=== PATIENT | female | born 1985 | race Caucasian/White ===

== ENCOUNTER → 2017-08-07 12:04 | Outpatient (CLI) | payer BC, SELFPAY ==
[2017-08-07 12:47] LABS: Basophils # 0.1 K/mm3 (0-0.2); Basophils % 0.5 % (0.1-2.0); Eosinophils # 0.1 K/mm3 (0.0-0.4); Eosinophils % 1.3 % (0.1-12.0); Hematocrit 37.9 % (37.0-47.0); Hemoglobin 12.8 g/dL (12.2-16.2); Lymphocytes # 2.2 K/mm3 (0.7-4.5); Lymphocytes % 21.9 K/mm3 (10-50); Mean Corpuscular HGB Conc 33.9 g/dL (31.8-35.4); Mean Corpuscular Hemoglobin 29.6 pg (27.0-31.2); Mean Corpuscular Volume 87.5 fl (81-99); Mean Platelet Volume 7.4 fl (7.4-10.4); Monocytes # 0.4 K/mm3 (0.1-1.0); Monocytes % 4.4 % (1.7-9.3); Neutrophils # 7.1 K/mm3 (1.8-7.8); Neutrophils % 71.9 % (37.0-80.0); Platelet Count 343 K/mm3 (142-424); Red Blood Count 4.33 M/mm3 (4.20-5.40); Red Cell Distribution Width 12.9 % (11.5-17.5); White Blood Count 9.9 K/mm3 (4.8-10.8)
[2017-08-07 14:12] LABS: Alanine Aminotransferase 31 U/L (12-78); Albumin Level 3.9 gm/dL (3.4-5.0); Albumin/Globulin Ratio 1.1 (1.1-1.8); Alkaline Phosphatase 95 U/L (46-116); Anion Gap 14.3 mEq/L (5-15); Aspartate Amino Transferase 23 U/L (15-37); Bilirubin,Total 0.3 mg/dL (0.2-1.0); Blood Urea Nitrogen 14 mg/dL (7-18); Calcium 8.9 mg/dL (8.5-10.1); Carbon Dioxide 28 mmol/L (21.0-32.0); Chloride 105 mmol/L (98-107); Creatinine,Serum 0.89 mg/dL (0.55-1.02); Estimated Glomerular Filt Rate 74 ml/min (>60); GFR (African American) 90 ML/MIN (>60); Globulin 3.4 gm/dl (1.3-3.2); Glucose 94 mg/dL (74-106); Potassium 4.3 mmoL/L (3.5-5.1); Sodium 143 mmol/L (136-145); Thyroid Stimulating Hormone 0.95 uIU/ml (0.358-3.740); Total Protein,Serum 7.3 gm/dL (6.4-8.2)
[2017-08-10 17:10] LABS: Vitamin B12 398 pg/mL (232-1245)
== END ==
PROVIDERS: PCP Nurse Practitioner Family; Visit Provider Nurse Practitioner Family
DX: R00.2 Palpitations (principal); E53.8 Deficiency of other specified B group vitamins
CPT/HCPCS: 36415; 80053; 82607; 84443; 85025; 93225; 93226

== ENCOUNTER → 2017-08-10 12:41 | Outpatient (CLI) | payer BC, SELFPAY ==
--- NOTE | 2017-08-10 12:59 | CA_ITS ---
PROCEDURE: 2-D M-mode and color Doppler study INDICATIONS FOR THE TEST: Chest pain COPD Heart Murmur Tobacco Smokingex Palpitations+ Fatigue Syncope Edema Hypertension Diabetes Mellitus Rheumatic Fever SOB DIAL+Obesity+Hyperlipidemia Family History HD+ Additional History chest tightness/pressure PATIENT INFORMATION HEIGHT: 64 WEIGHT: 235 GENDER: Female B/P: 142/95 2-D/M-MODE INTERPRETATION: 2-D MEASUREMENTS OBSERVED VALUES IN CMS Right Ventricular Dimension (RVDd) 2.0 Interventricular Septum (Thickness)(IVsd) 1.0 Left Ventricular Internal Dimensions(LVIDd) 5.0 Left Ventricular Posterior Wall (Thickness)(LVPWd) 1.0 Aortic Root 2.8 Aortic Cusp Separation 2.3 Left Atrial Dimensions (LAD) 3.6 2D 1. Left atrium is normal size, left ventricle is normal size, there is no concentric left ventricular hypertrophy, visually estimated ejection fraction 55% with no obvious regional wall motion abnormality. 2. The right atrium and right ventricle are normal size and contractility. 3. The aortic valve is minimally thickened and fibrosed. 4. The mitral valve leaflets are minimally thickened. 5. The tricuspid valve restructure normal 6. The pulmonic valve is poorly visualized. 7. No significant pericardial effusion noted. DOPPLER INTERROGATION: Doppler interrogation of the aortic, mitral and tricuspid valvular presence of mild mitral and tricuspid regurgitation, tricuspid and jet velocity is insufficient for calculation of the right ventricular systolic pressure, diastolic parameters are within normal range. CONCLUSION: 1. Normal left ventricular size, preserved left ventricular systolic function, visually estimated ejection fraction 55% with no signal wall motion abnormality, diastolic parameters are within normal range. 2. Mild mitral and tricuspid regurgitation. 3. No significant pericardial effusion noted.
== END ==
PROVIDERS: Family Provider Family Medicine; PCP Nurse Practitioner Family; Visit Provider Internal Medicine Adolescent Medicine
DX: R00.2 Palpitations (principal)
CPT/HCPCS: 93306

== ENCOUNTER → 2018-02-14 03:48 | Outpatient (CLI) | payer OTHER, SELFPAY ==
[2018-02-14 04:04] VITALS: BMI 38.6
== END ==
PROVIDERS: Visit Provider Emergency Medicine
DX: R05 Cough (principal); J20.9 Acute bronchitis, unspecified
CPT/HCPCS: 96372

== ENCOUNTER → 2019-01-30 01:48 | Outpatient (CLI) | payer OTHER, SELFPAY ==
[2019-01-30 02:06] VITALS: BMI 41.4
== END ==
PROVIDERS: PCP Internal Medicine Adolescent Medicine; Visit Provider Emergency Medicine
DX: G43.909 Migraine, unspecified, not intractable, without status migrainosus (principal)
CPT/HCPCS: G0463; J2405

== ENCOUNTER 2019-06-07 01:58 | Outpatient (CLI) | payer OTHER, SELFPAY ==
[2019-06-07 03:38] VITALS: BMI 30.9
[2019-06-07 03:43] VITALS: BP 134/82; PULSE 88; RESP 15; TEMP 36.8; O2SAT 100
== END 2019-06-07 03:45 | disposition home or self-care (01) ==
LOC: ER 02:00
PROVIDERS: PCP Internal Medicine Adolescent Medicine; Visit Provider Emergency Medicine
DX: J01.90 Acute sinusitis, unspecified (principal)
CPT/HCPCS: 96372; G0463

== ENCOUNTER 2019-10-27 11:35 | Outpatient (CLI) | payer OTHER, SELFPAY ==
[2019-10-27 12:10] VITALS: BP 157/97; PULSE 91; RESP 18; TEMP 36.2; O2SAT 98
== END 2019-10-27 12:10 | disposition home or self-care (01) ==
LOC: INF 11:36
PROVIDERS: PCP Internal Medicine Adolescent Medicine; Visit Provider Internal Medicine Adolescent Medicine
DX: M54.5 Low back pain (principal)
CPT/HCPCS: 96372

== ENCOUNTER → 2020-03-03 13:09 | Outpatient (CLI) | payer OTHER, SELFPAY ==
[2020-03-03 13:45] VITALS: BMI 29.0
== END ==
PROVIDERS: PCP Internal Medicine Adolescent Medicine; Visit Provider Nurse Practitioner Family
DX: L23.7 Allergic contact dermatitis due to plants, except food (principal)

== ENCOUNTER → 2020-03-15 08:35 | Outpatient (CLI) | payer OTHER, SELFPAY | PROVIDERS: PCP Internal Medicine Adolescent Medicine; Visit Provider Internal Medicine Adolescent Medicine | DX: Z03.818 Encounter for observation for suspected exposure to other biological agents ruled out (principal) | CPT/HCPCS: U0003 ==

== ENCOUNTER → 2020-04-29 15:53 | Outpatient (CLI) | payer OTHER, SELFPAY ==
[2020-04-29 17:35] LABS: Alanine Aminotransferase 190 U/L (12-78); Albumin Level 4.3 g/dl (3.5-5.0); Alkaline Phosphatase 77 U/L (38-126); Aspartate Amino Transferase 100 U/L (14-36); Bilirubin,Indirect 0.4 mg/dL (0.0-0.9); Bilirubin,Total 0.4 mg/dl (0.2-1.3); Bilirubin,Unconjugated 0.4 mg/dL (0.0-1.1); Total Protein,Serum 7.3 g/dl (6.3-8.2)
[2020-05-01 12:09] LABS: Hep A Ab, IgM Negative (Negative); Hepatitis B Core Antibody IgM Negative (Negative); Hepatitis B Surface Antigen Negative (Negative)
[2020-05-01 16:46] LABS: Hepatitis C Antibody <0.1 s/co ratio (0.0-0.9)
== END ==
PROVIDERS: Visit Provider Nurse Practitioner Family
DX: R94.5 Abnormal results of liver function studies (principal)
CPT/HCPCS: 36415; 80074; 80076

== ENCOUNTER → 2020-05-04 08:51 | Outpatient (CLI) | payer OTHER, SELFPAY ==
--- NOTE | 2020-05-04 08:54 | US_ITS ---
PROCEDURE: US LIVER CLINICAL INDICATION: ELEVATED LIVER ENZYMES COMPARISON: No exams were available for comparison FINDINGS: PANCREAS: Unremarkable. No obvious mass or abnormal fluid collection. No ductal dilatation LIVER: Diffuse increased echogenicity of the liver with poor through transmission of sound consistent with hepatic steatosis. No focal liver lesion demonstrated. There is appropriate direction of blood flow within non dilated portal vein. RIGHT KIDNEY: Unremarkable. Normal size and echogenicity. No hydronephrosis GALLBLADDER: No gallstones, gallbladder wall thickening, pericholecystic fluid, or biliary dilatation. IMPRESSION: Fatty liver otherwise negative unremarkable right upper quadrant ultrasound Dictated by: Floyd Cherry MD 05/04/2020 15:01 Floyd Cherry MD in [place] 05/04/2020 15:01
== END ==
PROVIDERS: PCP Internal Medicine Adolescent Medicine; Visit Provider Nurse Practitioner Family
DX: R74.8 Abnormal levels of other serum enzymes (principal)
CPT/HCPCS: 76705

== ENCOUNTER → 2021-02-21 09:32 | Outpatient (CLI) | payer OTHER, SELFPAY ==
[2021-02-21 10:27] LABS: Basophils % 0.3 % (0.1-2.0); Eosinophils # 0.2 K/mm3 (0.0-0.4); Eosinophils % 1.8 % (0.1-12.0); Hematocrit 37.7 % (37.0-47.0); Hemoglobin 12.6 g/dL (12.2-16.2); Lymphocytes % 24.7 % (10-50); Mean Corpuscular HGB Conc 33.5 g/dL (31.8-35.4); Mean Corpuscular Hemoglobin 29.2 pg (27.0-31.2); Mean Platelet Volume 7.3 fl (7.4-10.4); Monocytes # 0.3 K/mm3 (0.1-1.0); Monocytes % 3.2 % (1.7-9.3); Neutrophils # 5.8 K/mm3 (1.8-7.8); Neutrophils % 70.1 % (37.0-80.0); Platelet Count 309 K/mm3 (142-424); Red Blood Count 4.33 M/mm3 (4.20-5.40); Red Cell Distribution Width 12.6 % (11.5-17.5); White Blood Count 8.2 K/mm3 (4.8-10.8)
[2021-02-21 11:20] LABS: Alanine Aminotransferase 105 U/L (12-78); Albumin Level 4.2 g/dl (3.5-5.0); Albumin/Globulin Ratio 1.6 (1.1-1.8); Alkaline Phosphatase 75 U/L (38-126); Anion Gap 14.3 mEq/L (5-15); Aspartate Amino Transferase 62 U/L (14-36); Bilirubin,Total 0.5 mg/dl (0.2-1.3); Blood Urea Nitrogen 14 mg/dl (7-17); Calcium 8.9 mg/dl (8.4-10.2); Carbon Dioxide 22 mmol/L (22.0-30.0); Chloride 107 mmol/L (98-107); Chol/HDL Ratio 2.9 (1-3.5); Cholesterol 167 mg/dl (140-200); Estimated Glomerular Filt Rate 82 ml/min (>60); GFR (African American) 99 ML/MIN (>60); Globulin 2.7 g/dL (1.3-3.2); Glucose 100 mg/dl (74-100); HDL Cholesterol 58 mg/dl (40-60); Potassium 4.3 mmoL/L (3.5-5.1); Sodium 139 mmol/L (136-145); Total Protein,Serum 6.9 g/dl (6.3-8.2); Triglycerides 124 mg/dl (30-150); VLDL Cholesterol 25 mg/dL (0-40)
[2021-02-21 11:31] LABS: Direct LDL Cholesterol 89.98 mg/dL (100-129)
[2021-02-21 11:36] LABS: 25-OH Vitamin D, Total 51.2 ng/mL (30-100)
[2021-02-21 12:09] LABS: Vitamin B12 437 pg/mL (239-931)
== END ==
PROVIDERS: Visit Provider Nurse Practitioner Family
DX: Z00.00 Encounter for general adult medical examination without abnormal findings (principal); R53.83 Other fatigue
CPT/HCPCS: 36415; 80053; 80061; 82306; 82607; 84443; 85025

== ENCOUNTER 2021-04-03 12:57 | Emergency (ER) | payer OTHER, SELFPAY ==
[2021-04-03 12:57] VITALS: BP 148/86; PULSE 89; RESP 16; TEMP 37.2; O2SAT 98; BMI 40.8
--- NOTE | 2021-04-03 13:32 | CT_ITS ---
PROCEDURE INFORMATION: Exam: CT Abdomen And Pelvis With Contrast Exam date and time: 04/03/2021 1:32 PM Age: 35 years old Clinical indication: Abdominal pain; Localized; Right lower quadrant (rlq) TECHNIQUE: Imaging protocol: Computed tomography of the abdomen and pelvis with contrast. Radiation optimization: All CT scans at this facility use at least one of these dose optimization techniques: automated exposure control; mA and/or kV adjustment per patient size (includes targeted exams where dose is matched to clinical indication); or iterative reconstruction. Contrast material: ISOVUE; Contrast volume: 75 ml; Contrast route: IV; COMPARISON: [facility] XR acute abdomen series 06/22/2018 8:41 AM FINDINGS: Lungs: Ovoid 8 x 3 mm peripheral right pulmonary nodular density series 3, image 23, in the medial right lower lobe, most likely of infectious/inflammatory etiology, probably chronic granuloma and scarring, in this young patient, but no prior studies are available to compare. Note that [employer] society guidelines do not apply to patients less than 35 years of age. Mild interstitial scarring or subsegmental atelectasis greatest in the posterior right lower lobe. No consolidation. Liver: Mild focal periligamentous fatty change in the anterior left lobe of liver series 3, image 29. No suspicious mass. No hepatomegaly. Gallbladder and bile ducts: Contracted gallbladder is not well evaluated. No calcified stones. No biliary dilatation. Pancreas: Slight fatty infiltrative changes in the pancreas. No mass or ductal dilatation. Spleen: Borderline splenomegaly 12.8 cm series 3, image 34. Adrenal glands: The adrenal glands are normal. Kidneys and ureters: There is slight right hydronephrosis and proximal hydroureter compared with left, but no calcified obstructing stones. No renal mass or CT findings of pyelonephritis. Stomach and bowel: Most of the transverse, descending and sigmoid colon are empty and contracted which likely accounts for slightly thickened appearance. No pericolic edema fluid.There is no evidence of intestinal perforation or obstruction. The stomach is normal. Appendix: A normal appendix is identified. Intraperitoneal space: There is no free intraperitoneal air. There is no significant free intraperitoneal fluid. Vasculature: There is no aortic aneurysm. No portal venous gas. Lymph nodes: No significantly enlarged lymph nodes by short axis criteria. Urinary bladder: The bladder is normal. Reproductive: Uterus and adnexa are unremarkable for age. Bones/joints: There are spinal degenerative changes, with multilevel disc narrrowing and spondylosis. Degenerative changes appear greatest in the lower thoracic spine. Very mild hip degenerative changes. Soft tissues: There is a tiny fatty umbilical hernia; no herniated bowel loops. There are no soft tissue masses or fluid collections. IMPRESSION: 1. No findings of appendicitis. 2. There is slight dilatation of the right renal collecting system and proximal right ureter compared with left, but no obstructing calcified stones are seen. Differential would include recent passage of a stone, occult low-density distal ureteral stone such as urate stone, or UTI. 3. Most of the transverse, descending and sigmoid colon are empty and contracted, which likely accounts for thickened appearance. Less likely would be colitis; there is no pericolic fluid. 4. Additional nonemergency and chronic findings as above.
[2021-04-03 13:35] LABS: Microscopic, Urine URINE MICROSCOPIC (MICROSCOPIC)
[2021-04-03 13:40] LABS: Appearance,Urine TURBID (Clear); Bilirubin,Urine Negative (Negative); Blood, Urine 3+ (Negative); Color,Urine RED (Yellow); Glucose,Urine (UA) Negative (Negative); Ketones,Urine TRACE (Negative); Leukocyte Esterase,Urine TRACE (Negative); Nitrate,Urine POSITIVE (Negative); Protein,Urine 2+ (Negative)
[2021-04-03 13:44] LABS: Urine Pregnancy, HCG Qual. Negative (Negative)
[2021-04-03 13:52] LABS: Amorphous Sediment,Urine 1+ /lpf; Bacteria,Urine 2+ /lpf; RBC,Urine TNTC #/hpf (0-3)
[2021-04-03 14:17] LABS: Basophils # 0.1 K/mm3 (0-0.2); Chloride 107 mmol/L (98-107); Eosinophils # 0.1 K/mm3 (0.0-0.4); Eosinophils % 1.6 % (0.1-12.0); Hematocrit 37.1 % (37.0-47.0); Hemoglobin 12.5 g/dL (12.2-16.2); Lymphocytes # 1.7 K/mm3 (0.7-4.5); Lymphocytes % 28.9 % (10-50); Mean Corpuscular HGB Conc 33.8 g/dL (31.8-35.4); Mean Corpuscular Hemoglobin 30.5 pg (27.0-31.2); Mean Corpuscular Volume 90.4 fl (81-99); Mean Platelet Volume 8.1 fl (7.4-10.4); Monocytes # 0.4 K/mm3 (0.1-1.0); Monocytes % 6.4 % (1.7-9.3); Neutrophils # 3.7 K/mm3 (1.8-7.8); Neutrophils % 62.1 % (37.0-80.0); Platelet Count 363 K/mm3 (142-424); Potassium 4.1 mmoL/L (3.5-5.1); Red Blood Count 4.11 M/mm3 (4.20-5.40); Red Cell Distribution Width 13.3 % (11.5-17.5); Sodium 140 mmol/L (136-145); White Blood Count 5.9 K/mm3 (4.8-10.8)
[2021-04-03 14:19] LABS: Alanine Aminotransferase 68 U/L (12-78); Aspartate Amino Transferase 43 U/L (14-36); Blood Urea Nitrogen 11 mg/dl (7-17); Creatinine Clearance Estimated 169 mL/min (50-200); Estimated Glomerular Filt Rate 82 ml/min (>60); GFR (African American) 99 ML/MIN (>60)
[2021-04-03 14:20] LABS: Albumin Level 3.9 g/dl (3.5-5.0); Albumin/Globulin Ratio 1.3 (1.1-1.8); Alkaline Phosphatase 73 U/L (38-126); Anion Gap 11.1 mEq/L (5-15); Bilirubin,Total 0.2 mg/dl (0.2-1.3); Calcium 8.9 mg/dl (8.4-10.2); Carbon Dioxide 26 mmol/L (22.0-30.0); Globulin 3.1 g/dL (1.3-3.2); Glucose 105 mg/dl (74-100)
[2021-04-03 14:31] VITALS: BP 135/80; PULSE 68; RESP 18; O2SAT 98
--- NOTE | 2021-04-03 14:40 | HMH.EDGENADL ---
ED Disposition Clinical Impression: Nephrolithiasis, Pyelonephritis Disposition: Home, Self-Care Condition on Discharge: Fair Instructions: DI for Acute Abdominal Pain Additional Instructions: For any new or concerning symptoms, if pain worsens if you have fevers, chills, flank or abdominal pain worsens. Please take antibiotics for full course even if your symptoms have improved. Please also follow-up with your primary care doctor next week. Prescriptions: Ketorolac Tromethamine [Toradol 10mg tablet] 10 mg PO Q6HP PRN #30 tab MDD 40mg/day PRN Reason: Mild To Moderate Pain Transmission Status: Received by [facility] # Cefdinir [Omnicef 300mg Capsule] 300 mg PO BID #20 cap Transmission Status: Received by [facility] # Referrals: Felix Persaud MD [Primary Care Provider] - - Critical Care Critical Care Time: No Attestation: On 04/03/21, the high probability of a clinically significant, sudden or life threatening deterioration of the following system(s) required my full and direct attention, intervention and personal management. The time I documented below is in addition to time spent performing reported procedures but includes the following listed in this critical care notation. Medical Decision Making - Medical Records Medical records reviewed: Yes: I reviewed the patient's medical records. - Anthony Inquiry Pt receiving controlled substance: No Vital Signs: 04/03/21 12:57 04/03/21 14:31 04/03/21 15:01 Temperature 98.9 F Temperature Source Oral Pulse Rate 68 82 Pulse Rate [Radial] 89 Respiratory Rate 16 18 18 Blood Pressure 135/80 144/81 H Blood Pressure [Right Arm] 148/86 H Blood Pressure Mean 98 102 Blood Pressure Mean [Right Arm] 106 Blood Pressure Position Blood Pressure Position [Right Arm] Sitting 02 Sat by Pulse Oximetry 98 98 99 Oxygen Delivery Method Room Air 04/03/21 15:31 04/03/21 16:00 04/03/21 16:01 Temperature 98 F Temperature Source Oral Pulse Rate 74 78 77 Pulse Rate [Radial] Respiratory Rate 18 16 Blood Pressure 132/79 143/74 H 143/83 H Blood Pressure [Right Arm] Blood Pressure Mean 96 103 Blood Pressure Mean [Right Arm] Blood Pressure Position Sitting Blood Pressure Position [Right Arm] 02 Sat by Pulse Oximetry 99 99 Oxygen Delivery Method Room Air - Lab Data Lab Results 04/03/21 13:20: Urine Color Red, Urine Appearance Turbid, Urine pH 7.0, Ur Specific [place] 1.020, Urine Protein 2+, Urine Glucose (UA) Negative, Urine Ketones Trace, Urine Blood 3+, Urine Nitrate Positive, Urine Bilirubin Negative, Urine Urobilinogen 1.0, Ur Leukocyte Esterase Trace, Urine RBC Tntc, Urine WBC 5-10, Ur Squamous Epith Cells 10-20, Amorphous Sediment 1+, Urine Bacteria 2+ 04/03/21 13:20: Urine HCG, Qual Negative 04/03/21 14:00: WBC 5.9, RBC 4.11 L, Hgb 12.5, Hct 37.1, MCV 90.4, MCH 30.5, MCHC 33.8, RDW 13.3, Plt Count 363, MPV 8.1, Neut % (Auto) 62.1, Lymph % (Auto) 28.9, [place] % (Auto) 6.4, Eos % (Auto) 1.6, Baso % (Auto) 1.0, Neut # (Auto) 3.7, Lymph # (Auto) 1.7, [place] # (Auto) 0.4, Eos # (Auto) 0.1, Baso # (Auto) 0.1 04/03/21 14:00: Sodium 140, Potassium 4.1, Chloride 107, Carbon Dioxide 26, Anion Gap 11.1, BUN 11, Creatinine 0.80, Estimated Creat Clear 169, Estimated GFR 82, Est GFR ( Amer) 99, Glucose 105 H, Calcium 8.9, Total Bilirubin 0.2, AST 43 H, ALT 68, Alkaline Phosphatase 73, Total Protein 7.0, Albumin 3.9, Globulin 3.1, Albumin/Globulin Ratio 1.3 Result diagrams: 04/03/21 14:00 04/03/21 14:00 Orders (Tests/Meds): ED MEDICATIONS Discontinued Medications Generic Name Dose Route Start Last Admin Trade Name Freq PRN Reason Stop Dose Admin Hydromorphone HCl 0.5 mg 04/03/21 17:58 04/03/21 14:50 Hydromorphone 2mg/Ml Syringe IV 04/03/21 17:59 Not Given ONCE ONE Iopamidol 75 ml 04/03/21 14:18 04/03/21 14:19 Iopamidol-370 (76%);100ml Bottle IV 04/03/21 14:19 75 ml
[2021-04-03 15:01] VITALS: BP 144/81; PULSE 82; RESP 18; O2SAT 99
[2021-04-03 15:31] VITALS: BP 132/79; PULSE 74; RESP 18; O2SAT 99
[2021-04-03 16:00] VITALS: BP 143/74; PULSE 78; RESP 16; TEMP 36.6; O2SAT 98
[2021-04-03 16:01] VITALS: BP 143/83; PULSE 77; O2SAT 99
== END 2021-04-03 18:01 | disposition home or self-care (01) ==
PROVIDERS: Emergency Provider Emergency Medicine; PCP Internal Medicine Adolescent Medicine
DX: N10 Acute pyelonephritis (principal); B96.20 Unspecified Escherichia coli [E. coli] as the cause of diseases classified elsewhere
CPT/HCPCS: 74177; 80053; 81001; 81025; 85025; 87086; 87088; 87186; 96365; 96375; 99283; Q9967

== ENCOUNTER 2022-03-08 10:03 | Emergency (ER) | payer OTHER, SELFPAY ==
[2022-03-08 10:45] VITALS: BP 158/86; PULSE 91; RESP 18; TEMP 36.4; O2SAT 100; BMI 42.9
[2022-03-08 11:04] LABS: UTC Strep Screen (Rapid) Positive (Negative)
--- NOTE | 2022-03-08 11:12 | HMH.EDUTC ---
[facility] [place] Disposition Clinical Impression: Strep throat Disposition: Home, Self-Care Condition on Discharge: Good Instructions: DI for Strep Throat, Strep Throat Additional Instructions: *Monitor Temp, Over the counter Motrin or Tylenol as directed/as needed Tylenol every 4 hours and Motrin every 6 hours (as long as your family doctor has told you that you can take it) for fever or pain. and straight to ER if unable to lower temp less than 101.0 after medication given *Warm salt water gargles may help to soothe the throat *Throat Lozenges *Warm fluids like tea with honey may help to soothe the throat *Sleep elevated *Humidifier/Vaporizer *If you did not take Penicillin shot or was unable to, start taking antibiotic immediately and make sure that you take it for the FULL length of time although you should start to feel better in 24-48 hours *change toothbrush and toothpaste 24-48 hours after starting to take antibiotics so you do not reinfect yourself Monitor Temp. Tylenol and/or Ibuprofen as needed. ER if fever is no less than 101 despite alternating Tylenol and Ibuprofen * Encourage fluids, water, Gatorade, powerade, pedialyte if infant/toddler/or child *Cold fluids, popsicles and ice cream may feel good on his throat Follow up IMMEDIATELY for new or worsening symptoms or no Noticeable improvement over the next 48-72 hours. 911 for difficulty breathing or swallowing Prescriptions: Cefdinir [Omnicef 300mg Capsule] 300 mg PO BID #20 cap Transmission Status: Pending to [email or web address] #[id number] Referrals: Felix Persaud MD [Primary Care Provider] - As needed Time of Disposition: 11:28 Medical Decision Making - Anthony Inquiry Pt receiving controlled substance: No Anthony was queried for this patient: No Vital Signs: 03/08/22 10:45 Temperature 97.5 F L Temperature Source Temporal Artery Scan Pulse Rate [Right Brachial] 91 H Respiratory Rate 18 Blood Pressure [Right Arm] 158/86 H Blood Pressure Mean [Right Arm] 110 Blood Pressure Source [Right Arm] Automatic Cuff Blood Pressure Position [Right Arm] Sitting 02 Sat by Pulse Oximetry 100 Oxygen Delivery Method Room Air - Lab Data Lab results reviewed: Yes: I reviewed the patient's lab results. Lab Results 03/08/22 11:03: Strep Scn Rapid Clinic Positive A [facility] [place] HPI - General Stated complaint: sore throat, fever Time Seen by Provider: 03/08/22 11:12 Mode of Arrival: Ambulatory Source of Information: Patient Limitations: No Limitations Description of Symptoms (Recalled from Triage Doc. by RN): PATIENT C/O SORE THROAT THAT STARTED THIS MORNING HEENT Symptoms (Recalled from RN notes): Yes Resp Symptoms (Recalled from RN notes): No Skin Symptoms (Recalled from RN notes): No MS Symptoms (Recalled from RN notes): No Functional Status (Recalled from RN notes): WNL - History of Present Illness Provider Complaint: Patient states that she woke up this morning complaining of pain in her throat States that she feels like she may have strep throat States that as the day went on her throat was hurting worse so she came in - Related Data Home Medications Medication Instructions Recorded Confirmed Buspirone HCl [Buspar 10mg 10 mg PO BID 06/22/18 06/22/18 tablet] Fluoxetine HCl [Prozac 20mg 20 mg PO DAILY 06/22/18 06/22/18 Capsule] Propranolol HCl [Inderal 20mg 20 mg PO BID 06/22/18 06/22/18 tablet] Previous Rx's Medication Instructions Recorded Dicyclomine HCl [Bentyl 10mg 10 mg PO Q8H #20 cap 06/22/18 capsule] Loperamide HCl [Imodium A-D] 2 mg PO Q6HP PRN #12 cap 06/22/18 Metoclopramide HCl [Reglan 5mg 5 mg PO ACHS 30 Days #30 tab 06/22/18 Tablet] Cefdinir [Omnicef 300mg Capsule] 300 mg PO BID #20 cap 04/03/21 Ketorolac Tromethamine [Toradol 10 mg PO Q6HP PRN #30 tab MDD 04/03/21 10mg tablet] 40mg/day Cefdinir [Omnicef 300mg Capsule] 300 mg PO BID #20 cap 03/08/22 Allergies Allergy/AdvReac Type Severity R
[2022-03-08 11:30] VITALS: BP 158/86; PULSE 91; RESP 18; TEMP 36.4; O2SAT 100
== END 2022-03-08 11:32 | disposition home or self-care (01) ==
PROVIDERS: Emergency Provider Nurse Practitioner; PCP Internal Medicine Adolescent Medicine
DX: J02.0 Streptococcal pharyngitis (principal)
CPT/HCPCS: 87880; 99212; G0463

== ENCOUNTER 2022-03-09 20:30 | Emergency (ER) | payer OTHER, SELFPAY ==
[2022-03-09 20:31] VITALS: BP 134/83; PULSE 137; RESP 16; TEMP 39.6; O2SAT 96; BMI 42.9
[2022-03-09 20:43] VITALS: BMI 42.9
--- NOTE | 2022-03-09 20:44 | XR_ITS ---
PROCEDURE INFORMATION: Exam: XR Chest Exam date and time: 03/09/2022 8:46 PM Age: 36 years old Clinical indication: Fever TECHNIQUE: Imaging protocol: Radiologic exam of the chest. Views: 2 views. COMPARISON: CT ABDOMEN PELVIS W CON 04/03/2021 2:09 PM FINDINGS: Lungs: Unremarkable. No consolidation. Pleural spaces: Unremarkable. No pleural effusion. No pneumothorax. Heart/Mediastinum: Unremarkable. No cardiomegaly. Bones/joints: Unremarkable. IMPRESSION: No acute findings.
[2022-03-09 20:50] LABS: Influenza A, PCR Not Detected (NotDetected); Influenza B, PCR Not Detected (NotDetected)
[2022-03-09 21:01] LABS: Basophils # 0.2 K/mm3 (0-0.2); Basophils % 2.8 % (0.1-2.0); Eosinophils # 0.2 K/mm3 (0.0-0.4); Eosinophils % 2.6 % (0.1-12.0); Hematocrit 39.2 % (37.0-47.0); Hemoglobin 12.9 g/dL (12.2-16.2); Lymphocytes # 1.4 K/mm3 (0.7-4.5); Lymphocytes % 22.1 % (10-50); Mean Corpuscular HGB Conc 32.8 g/dL (31.8-35.4); Mean Corpuscular Hemoglobin 29.7 pg (27.0-31.2); Mean Corpuscular Volume 90.6 fl (81-99); Mean Platelet Volume 7.7 fl (7.4-10.4); Monocytes # 0.7 K/mm3 (0.1-1.0); Monocytes % 10.2 % (1.7-9.3); Neutrophils % 62.3 % (37.0-80.0); Platelet Count 361 K/mm3 (142-424); Red Blood Count 4.33 M/mm3 (4.20-5.40); Red Cell Distribution Width 13.6 % (11.5-17.5); White Blood Count 6.4 K/mm3 (4.8-10.8)
[2022-03-09 21:17] LABS: Alanine Aminotransferase 122 U/L (12-78); Albumin Level 4.2 g/dl (3.5-5.0); Albumin/Globulin Ratio 1.3 (1.1-1.8); Alkaline Phosphatase 97 U/L (38-126); Anion Gap 9.7 mEq/L (5-15); Aspartate Amino Transferase 71 U/L (14-36); Bilirubin,Total 0.2 mg/dl (0.2-1.3); Blood Urea Nitrogen 6 mg/dl (7-17); Carbon Dioxide 24 mmol/L (22.0-30.0); Chloride 107 mmol/L (98-107); Creatinine Clearance Estimated 75 mL/min (50-200); Estimated Glomerular Filt Rate 71 ml/min (>60); GFR (African American) 86 ML/MIN (>60); Globulin 3.2 g/dL (1.3-3.2); Glucose 110 mg/dl (74-100); Potassium 3.7 mmoL/L (3.5-5.1); Sodium 137 mmol/L (136-145); Total Protein,Serum 7.4 g/dl (6.3-8.2)
[2022-03-09 21:22] LABS: Microscopic, Urine URINE MICROSCOPIC (MICROSCOPIC)
[2022-03-09 21:23] LABS: Appearance,Urine CLOUDY (Clear); Bilirubin,Urine Negative (Negative); Blood, Urine 3+ (Negative); Color,Urine ORANGE (Yellow); Glucose,Urine (UA) Negative (Negative); Ketones,Urine Negative (Negative); Leukocyte Esterase,Urine TRACE (Negative); Nitrate,Urine Negative (Negative); Protein,Urine Negative (Negative); Specific Gravity, Urine 1.015 (1.005-1.030); Urobilinogen,Urine 0.2 EU/dl (0.2)
[2022-03-09 21:25] LABS: Coronavirus 19, PCR Detected (NotDetected)
[2022-03-09 21:46] LABS: Bacteria,Urine Trace /lpf; RBC,Urine TNTC #/hpf (0-3)
--- NOTE | 2022-03-09 21:50 | HMH.EDURI ---
ED Disposition Clinical Impression: COVID-19 Disposition: Home, Self-Care Condition on Discharge: Good Instructions: DI for COVID-19 (Suspected or Confirmed ) Additional Instructions: fluids and call pcp for follow up Referrals: Felix Persaud MD [Primary Care Provider] - - Critical Care Critical Care Time: No Attestation: On 03/09/22, the high probability of a clinically significant, sudden or life threatening deterioration of the following system(s) required my full and direct attention, intervention and personal management. The time I documented below is in addition to time spent performing reported procedures but includes the following listed in this critical care notation. Medical Decision Making - Medical Records Medical records reviewed: Yes: I reviewed the patient's medical records. - Anthony Inquiry Pt receiving controlled substance: No Vital Signs: 03/09/22 20:31 Temperature 103.2 F H Temperature Source Oral Pulse Rate [Right] 137 H Respiratory Rate 16 Blood Pressure [Right Arm] 134/83 Blood Pressure Mean [Right Arm] 100 02 Sat by Pulse Oximetry 96 - Lab Data Lab results reviewed: Yes: I reviewed the patient's lab results. Lab Results 03/09/22 20:43: SARS-CoV-2 (PCR) Detected A, Influenza A Untype (PCR) Not detected, Influenza Type B (PCR) Not detected 03/09/22 20:54: WBC 6.4, RBC 4.33, Hgb 12.9, Hct 39.2, MCV 90.6, MCH 29.7, MCHC 32.8, RDW 13.6, Plt Count 361, MPV 7.7, Neut % (Auto) 62.3, Lymph % (Auto) 22.1, [place] % (Auto) 10.2 H, Eos % (Auto) 2.6, Baso % (Auto) 2.8 H, Neut # (Auto) 4.0, Lymph # (Auto) 1.4, [place] # (Auto) 0.7, Eos # (Auto) 0.2, Baso # (Auto) 0.2 03/09/22 20:54: Sodium 137, Potassium 3.7, Chloride 107, Carbon Dioxide 24, Anion Gap 9.7, BUN 6 L, Creatinine 0.90, Estimated Creat Clear 75, Estimated GFR 71, Est GFR ( Amer) 86, Glucose 110 H, Calcium 9.0, Total Bilirubin 0.2, AST 71 H, ALT 122 H, Alkaline Phosphatase 97, Total Protein 7.4, Albumin 4.2, Globulin 3.2, Albumin/Globulin Ratio 1.3 03/09/22 21:15: Urine Color [place], Urine Appearance Cloudy, Urine pH 7.0, Ur Specific [place] 1.015, Urine Protein Negative, Urine Glucose (UA) Negative, Urine Ketones Negative, Urine Blood 3+, Urine Nitrate Negative, Urine Bilirubin Negative, Urine Urobilinogen 0.2, Ur Leukocyte Esterase Trace, Urine RBC Tntc, Urine WBC 3-5, Ur Squamous Epith Cells 3-5, Urine Bacteria Trace Result diagrams: 03/09/22 20:54 03/09/22 20:54 Orders (Tests/Meds): ED MEDICATIONS Generic Name Dose Route Start Last Admin Trade Name Freq PRN Reason Stop Dose Admin Sodium Chloride 1,000 mls @ 999 mls/hr 03/09/22 21:00 03/09/22 21:19 Sod Chlor 0.9% 1000ml Bag IV 03/09/22 22:00 999 mls/hr .[id number] RAMU Administration Discontinued Medications Generic Name Dose Route Start Last Admin Trade Name Freq PRN Reason Stop Dose Admin Dexamethasone Sodium Phosphate 10 mg 03/09/22 20:46 03/09/22 21:08 Dexamethasone 4mg/Ml 5ml Mdv IV 03/09/22 20:47 10 mg ONCE ONE Administration - Radiology Data #1 Image(s): Chest Image Reviewed: Yes I have reviewed radiologist's interpretation Preliminary Findings: Normal/NAD Medical Decision Narrative: has covid-19 and has recent positive strep on abx - stable exam and labs URI/Sore Throat HPI - General Chief Complaint: Fever Stated Complaint: FEVER 103,WEAKNESS,BODY ACHES Time Seen by Provider: 03/09/22 21:50 Mode of Arrival: Ambulatory Source of Information: Patient, Medical Record Limitations: No Limitations Description of Symptoms (Recalled from ER Triage Doc. by RN): pt c/o sore throat, fever, ear ringing, joint pain, and HERNANDEZ. pt tested positive for strep throat. - History of Present Illness HPI Narrative: uri sx and sore throat with fever but no rash - recent positive strep and on abx MD Complaint: fever, sore throat Onset (ago): day(s) Duration: intermittent Severity: moderate Able to tolerate fluids by mouth: Yes
[2022-03-09 21:59] VITALS: BP 130/74; PULSE 121; RESP 16; TEMP 37.9; O2SAT 99
== END 2022-03-09 22:02 | disposition home or self-care (01) ==
PROVIDERS: Emergency Provider Emergency Medicine; PCP Internal Medicine Adolescent Medicine
DX: U07.1 COVID-19 (principal)
CPT/HCPCS: 71046; 80053; 81001; 85025; 96365; 96375; 99284; C9803; U0003; U0005

== ENCOUNTER 2024-07-26 10:27 | Emergency (ER) | payer OTHER, SELFPAY ==
[2024-07-26 12:17] VITALS: BP 0/0; PULSE 0; RESP 0; TEMP -17.7; TEMP 0
== END 2024-07-26 12:17 | disposition left against medical advice (07) ==
PROVIDERS: Emergency Provider Nurse Practitioner Family; PCP Physician Assistant
DX: Z53.21 Procedure and treatment not carried out due to patient leaving prior to being seen by health care provider (principal)

== ENCOUNTER 2024-10-31 03:18 | Emergency (ER) | payer OTHER, SELFPAY ==
[2024-10-31 03:24] VITALS: BP 132/92; PULSE 121; RESP 20; TEMP 37.2; O2SAT 100; BMI 40.5
--- NOTE | 2024-10-31 03:26 | ECG_ITS ---
APPROVED REPORT Exam: Resting ECG HR:117 bpm ECG Measurements Heart Rate 117 AXES ID 143 P 52 QRSd 82 QRS 42 QT 350 T 24 QTc 419 Conclusion SINUS TACHYCARDIA NONSPECIFIC ST & T-WAVE ABNORMALITY No STEMI Electronically signed by : BELKYS STEPHEN, 11/01/2024 03:23:59
--- NOTE | 2024-10-31 03:27 | PC.NURSE ---
Pt awake alert and oriented resp full and tachypnic Skin pink warm and dry Speech clear and appropriate
--- NOTE | 2024-10-31 03:28 | PC.NURSE ---
Report given to Karie LINARES
[2024-10-31 03:32] VITALS: BP 140/82; PULSE 110; O2SAT 100
--- NOTE | 2024-10-31 03:34 | ED_ITS ---
Discharge Plan Disposition Patient Disposition: Home, Self-Care Prescriptions Prescriptions: New methocarbamol 500 mg tablet 1,000 mg PO Q6H PRN (Reason: pain) Qty: 30 0RF benzonatate 100 mg capsule 100 mg PO Q6H PRN (Reason: cough) Qty: 30 0RF No Action azithromycin [Zithromax Z-Mark] 250 mg tablet See Rx Instructions PO .COMPLEX Qty: 6 0RF Rx Instructions: For 250 mg dose pack: take 500 mg today (day 1), then 250 mg for 4 days (days 2-5) PO prednisone 20 mg tablet 20 mg PO BID Qty: 10 0RF Rx Instructions: administer with food or milk pseudoephedrine HCl [Sudafed 12 Hour] 120 mg tablet extended release 120 mg PO Q12H Qty: 20 0RF Referrals Follow up/Referrals: Shell Hughes PA [Primary Care Provider] - See instructions Activity Restrictions/Add. Instructions Additional Instructions/Restrictions: Please follow-up with your primary care provider. Please return to the emergency department if you develop any new or worsening symptoms or become concerned for your health. Clinical Impressions Clinical Impression: URI (upper respiratory infection), Rib pain on right side Print Language Print Language: Latvian Discharge ED Provider: Eder Murphy General Adult HPI General Chief complaint: Upper Respiratory Infection Stated complaint: SOB, hurts to breathe in Time Seen by Provider: 10/31/24 03:25 Mode of Arrival: Ambulatory Source of Information: Patient Description of Symptoms (Recalled from ER Triage Doc. by RN): Pt states has had cough and fever since Sunday Now more short of breath History of Present Illness HPI narrative: 39-year-old female without significant past medical history presents with flulike illness. She has had cough, nasal congestion, fever since Sunday. She is a bit more short of breath. She has had some right-sided rib pain worse with coughing and movement over the last couple of days. Related Data Previous Rx's ?Medication ?Instructions ?Recorded azithromycin 250 mg tablet See Rx Instructions PO .COMPLEX #6 02/29/24 (Zithromax Z-Mark) tabs prednisone 20 mg tablet 20 mg PO BID #10 tabs 02/29/24 pseudoephedrine HCl 120 mg 120 mg PO Q12H #20 tabs 02/29/24 tablet,extended release (Sudafed 12 Hour) benzonatate 100 mg capsule 100 mg PO Q6H PRN cough #30 caps 10/31/24 methocarbamol 500 mg tablet 1,000 mg (2 x 500 mg) PO Q6H PRN 10/31/24 pain #30 tabs Allergies Allergy/AdvReac Type Severity Reaction Status Date / Time codeine Allergy Intermediate Rash Verified 02/29/24 15:19 [facility] Disclaimer: The information contained in this section may have been updated after the patient was seen, as this information can be updated by other users. Social History (Updated 03/03/24 @ 10:58 by CHARLENE Corea) Smoking Status: Former smoker alcohol intake: never current occupational status: other Travel in the last 8 weeks: None Have you lived/traveled outside [place] in past 30 days?: No Contact w/someone who lives/traveled outside [place] past 30 days?: No Exposure to someone with infectious disease in past 14 days?: No Do you have a fever (greater than 100.4 F or 38 C)?: No Have you tested positive for COVID-19: No Exposed to someone with COVID-19 in past 14 days?: Yes Do you have a sore throat?: No Do you have a cough?: No Do you have any weakness?: No Do you have any diarrhea?: No Are you experiencing any unusual bleeding?: No Do you have any muscle aches/pain?: No Do you have any abdominal pain?: No Are you experiencing loss of taste or smell?: No Other Medical History Have you received the Flu Vaccine for this season: Yes Have you received the Pneumonia Vaccine: No ROS Obtained: Yes All systems reviewed & no additional complaints except as documented Physical Exam General General appearance: alert and in no apparent distress Head Head exam: atraumatic and normocephalic Eye Eye exam: Present normal appearance, PERRL and EOMI ENT ENT exam: Present normal oropharynx and normal external ear exam Neck Neck exam: Present normal inspection and full ROM Chest Chest inspection: Present normal inspection and symmetric chest wall rise; Absent tenderness Respiratory Respiratory exam: Present normal lung sounds bilaterally; Absent respiratory distress Cardiovascular Cardiovascular exam: Present regular rate and normal rhythm Abdominal Exam Abdominal exam: Present soft; Absent distention, tenderness or guarding Extremities Exam Extremities exam: Present normal inspection; Absent edema or joint swelling Back Exam Back exam: Present normal inspection; Absent tenderness Neurological Exam Neurological exam: Present alert and oriented X3; Absent motor sensory deficit Psychiatric Psychiatric exam: Present normal affect and normal mood Skin Skin exam: Present warm, dry and normal color Lymphatic Lymphatic Findings: no adenopathy Medical Decision Making Medical Records Medical records reviewed: Yes I reviewed the patient's medical records. Screening: Per USPSTF and CDC recommendations, given the prevalence of disease in our region, it is our hospital?s policy to screen for HIV and viral Hepatitis for all patients aged 18 and over and those with ongoing risk factors. Anthony Inquiry Pt receiving controlled substance: No Anthony was queried for this patient: No Vital Signs: 10/31/24 03:24 10/31/24 03:32 10/31/24 04:00 Temperature 98.9 F Temperature Source Oral Pulse Rate 110 H 102 H Pulse Rate [Right Brachial] 121 H Respiratory Rate 20 Blood Pressure 140/82 146/88 H Blood Pressure [Right Arm] 132/92 H Blood Pressure Mean [Right Arm] 105 Blood Pressure Source [Right Arm] Automatic Cuff Blood Pressure Position [Right Arm] Sitting 02 Sat by Pulse Oximetry 100 100 99 Oxygen Delivery Method Room Air 10/31/24 04:20 Temperature 97.9 F Temperature Source Pulse Rate 107 H Pulse Rate [Right Brachial] Respiratory Rate 18 Blood Pressure 146/88 H Blood Pressure [Right Arm] Blood Pressure Mean [Right Arm] Blood Pressure Source [Right Arm] Blood Pressure Position [Right Arm] 02 Sat by Pulse Oximetry Oxygen Delivery Method Room Air Lab Data Lab results reviewed: Yes I reviewed the patient's lab results. Lab Results 10/31/24 03:32: HCV Ab RADHA w/Rflx PCR Qn Negative, HIV Ag/Ab Combo Qual Negative Orders (Tests/Meds): ED MEDICATIONS Discontinued Medications Generic Name Dose Route Start Last Admin Trade Name Freq PRN Reason Stop Dose Admin Methocarbamol 1,000 mg 10/31/24 04:11 10/31/24 04:24 Methocarbamol 500mg Tablet PO 10/31/24 04:12 1,000 mg ONCE ONE Administration ORDERS Category Date Time Status CXR 2 view (NOT portable) [XR chest 2V] Stat Exams 10/31/24 03:43 Completed HIV Combo Routine Lab 10/31/24 03:32 Completed Hepatitis C Ab Qual. W/ RFX Routine Lab 10/31/24 03:32 Completed Medical Decision Narrative: 39-year-old female without significant past medical history presents for viral syndrome over the last few days, worsening chest pain on the right with cough. History was obtained via interactive discussion with patient. On arrival, patient is [afebrile, hemodynamically stable, satting appropriately, alert, oriented x4, GCS 15], moving all extremities spontaneously. Full physical exam performed and significant for clear lungs bilaterally focal tenderness to the right lateral ribs Differential includes but is not limited to pneumonia, viral infection, flu, RSV, rib fracture/strain. Patient was given Robaxin for symptomatic management and correction of underlying abnormalities. Workup initiated including 2 view chest x-ray. On re-evaluation, patient [remains afebrile, HD stable.] Imaging independently interpreted by me and significant for no consolidation or obvious rib fracture. See radiology read for full review of final results. Blood work, viral swab was considered, but deemed unnecessary due to history and exam. Given patient history, exam and workup, patient's presentation most likely represents viral infection. No evidence of bacterial pathology at this time. Patient satting appropriately on room air. She is discharged in stable condition with return precautions.. Procedures Risk/Benefits of Procedure(s) Were Explained: Yes Critical Care Critical Care Time Critical Care Time: No
--- NOTE | 2024-10-31 03:43 | XR_ITS ---
PROCEDURE INFORMATION: Exam: XR Chest Exam date and time: 10/31/2024 3:38 AM Age: 39 years old Clinical indication: Cough and fever; Additional info: Cough, fever, R chest pain TECHNIQUE: Imaging protocol: Radiologic exam of the chest. Views: 2 views. COMPARISON: CR XR CHEST 2V 03/09/2022 8:46 PM FINDINGS: Lungs: Unremarkable. No consolidation. Pleural spaces: Unremarkable. No pleural effusion. No pneumothorax. Heart/Mediastinum: Unremarkable. No cardiomegaly. Bones/joints: Unremarkable. IMPRESSION: No acute findings.
--- NOTE | 2024-10-31 03:47 | PC.NURSE ---
pt taken to radiology at this time via wheelchair
[2024-10-31 04:00] VITALS: BP 146/88; PULSE 102; O2SAT 99
[2024-10-31 04:20] VITALS: BP 146/88; PULSE 107; RESP 18; TEMP 36.6; O2SAT 96
[2024-10-31] MEDS: METHOCARBAMOL 500MG TABLET 1000 MG PO (04:24)
[2024-10-31 04:47] LABS: HIV Combo NEGATIVE (Negative)
[2024-10-31 04:55] LABS: Hepatitis C Ab Qual. W/ RFX NEGATIVE (Negative)
== END 2024-10-31 04:22 | disposition home or self-care (01) ==
PROVIDERS: Emergency Provider Emergency Medicine; PCP Physician Assistant
DX: J06.9 Acute upper respiratory infection, unspecified (principal); R00.0 Tachycardia, unspecified; R07.2 Precordial pain; R50.9 Fever, unspecified; R09.81 Nasal congestion; R05.9 Cough, unspecified; R07.1 Chest pain on breathing; R06.02 Shortness of breath; Z88.5 Allergy status to narcotic agent; Z87.891 Personal history of nicotine dependence
CPT/HCPCS: 71046; 86803; 87389; 93005; 99284